=== PATIENT | male | born 1990 | race Caucasian/White ===

== ENCOUNTER 2019-10-21 00:04 | Emergency (ER) | payer SELFPAY ==
[~2019-10-21] VITALS: Ht 182.9 cm; Wt 88.5 kg
[2019-10-21 00:41] VITALS: BP 129/75
== END 2019-10-21 02:09 | disposition left against medical advice (07) ==
LOC: ER 00:04
DX: T16.1XXA Foreign body in right ear, initial encounter (principal); X58.XXXA Exposure to other specified factors, initial encounter; Y93.9 Activity, unspecified; Y92.9 Unspecified place or not applicable
CPT/HCPCS: 69200; 99284; Z7610

== ENCOUNTER 2020-09-12 16:00 | Emergency (ER) | payer OTHER ==
[~2020-09-12] VITALS: Ht 182.9 cm; Wt 75.0 kg
[2020-09-12] MEDS ORDERED: ASPIRIN 81MG TABLET PO ONE (16:30)
[2020-09-12 17:51] LABS: BASOPHILS % 0.7 % (0.0-2.0); EOSINOPHILS % 5.4 % (0.0-5.0); HEMATOCRIT. 46.5 % (42.0-52.0); LYMPHOCYTES % 28.2 % (20.0-50.0); MEAN CORPUSCULAR VOLUME 87.5 fL (80.0-94.0); MONOCYTES % 6.5 % (2.0-8.0); NEUTROPHILS % 59.2 % (40.0-76.0); PLATELET 291 x1000/uL (130-400); RED BLOOD CELL COUNT 5.32 mill/uL (4.7-6.1); RED CELL DISTRIBUTION WIDTH 13.9 % (11.6-14.6)
[2020-09-12 17:58] LABS: CHLORIDE 107 mEq/L (98-107)
[2020-09-12] MEDS: NITROGLYCERIN 0.4MG TABLET SL SL PRN (19:02)
[2020-09-12 19:45] VITALS: BP 118/76
== END 2020-09-12 20:05 | disposition left against medical advice (07) ==
LOC: ER 16:00
DX: R07.89 Other chest pain (principal); J45.909 Unspecified asthma, uncomplicated
CPT/HCPCS: 36415; 71045; 80053; 83880; 84484; 85025; 93005; 99285; Z7610